=== PATIENT | male | born 1995 | race Caucasian/White ===

== ENCOUNTER 2017-11-19 21:01 | Emergency (ER) | payer BC ==
[2017-11-19 21:13] VITALS: BP 112/60
--- NOTE | 2017-11-19 21:43 | UC ---
Epistaxis Nasal HPI - HPI Summary HPI Summary: Pt collided with another player while playing basketball tonight. Has small cut on bridge of nose with lots of bleeding. Denies dental pain, neck pain, LOC, confusion, or headache. Breathing normally despite marked swelling of bridge of nose. - History of Current Complaint Chief Complaint: UCTrauma Stated Complaint: NOSE INJURY Time Seen by Provider: 11/19/17 21:18 Hx Obtained From: Patient Onset/Duration: Sudden Onset Timing: Constant Severity Initially: Moderate Severity Currently: Mild Pain Intensity: 5 Character: Light Aggravating Factor(s): Nasal Trauma Alleviating Factor(s): Pressure, Ice Associated Signs And Symptoms: Positive: Bruising, Nasal Discharge. Negative: Sinus Pain - Allergies/Home Medications Allergies/Adverse Reactions: Allergies Allergy/AdvReac Type Severity Reaction Status Date / Time amoxicillin [From Augmentin] Allergy Severe Hives Verified 11/19/17 21:14 clavulanic acid Allergy Severe Hives Verified 11/19/17 21:14 [From Augmentin] Home Medications: Home Medications Ibuprofen TAB* [Advil TAB*] 600 mg PO ONCE PRN 11/19/17 [History Confirmed 11/19] Vitamins* 11/19/17 [History] PMH/Surg Hx/FS Hx/Imm Hx Previously Healthy: Yes - Surgical History Surgical History: None - Family History Known Family History: Negative: Blood Disorder - Social History Lives: Alone Alcohol Use: Occasionally Substance Use Type: None Smoking Status (MU): Never Smoked Tobacco - Immunization History Most Recent Tetanus Shot: UNSURE Review of Systems Constitutional: Negative Skin: Other - cut Eyes: Negative ENT: Epistaxis Respiratory: Negative Cardiovascular: Negative Gastrointestinal: Negative Genitourinary: Negative Motor: Negative Neurovascular: Negative Musculoskeletal: Negative Neurological: Negative Psychological: Negative Is Patient Immunocompromised?: No All Other Systems Reviewed And Are Negative: Yes Physical Exam Triage Information Reviewed: Yes Appearance: Well-Appearing, No Pain Distress, Well-Nourished Vital Signs: Initial Vital Signs Temp 99.1 F 11/19/17 21:10 Pulse 90 11/19/17 21:10 Resp 16 11/19/17 21:10 BP 112/60 11/19/17 21:10 Pulse Ox 99 11/19/17 21:10 Vital Signs Reviewed: Yes Eye Exam: Normal Eyes: Positive: Conjunctiva Clear ENT Exam: Other - no facial tenderness in orbits, maxillary sinuses, or forehead /eyebrows ENT: Positive: Hearing grossly normal, Pharyngeal erythema, Other - Marked swelling over bridge of nose with 0.5cm laceration. Nasal septum midline with no septal hematoma, septal deviation, or nasal obstruction. No evidence of epistaxis.. Negative: Nasal congestion, Nasal drainage, Tonsillar swelling Dental Exam: Normal Dental: Negative: Percussion Tenderness @, Dental Fracture @, Bleeding Neck exam: Normal, Other - no bony tenderness Neck: Positive: Supple, Nontender, No Lymphadenopathy Respiratory Exam: Normal Respiratory: Positive: Chest non-tender, Lungs clear, Normal breath sounds, No respiratory distress, No accessory muscle use Cardiovascular Exam: Normal Cardiovascular: Positive: RRR, No Murmur Musculoskeletal Exam: Normal Neurological Exam: Normal Psychological Exam: Normal Skin Exam: Other - 0.5cm lac to bridge of nose, flushed by COMPUTER REPAIRER with 200mL NS, closed with glue and steris Procedures - Laceration/Wound Repair 1 Location: face Description: Linear Length, Depth and Shape: 5mm x 0mm x 0mm, linear Betadine Prep?: No Laceration/Wound Explored: clean Closure: Skin Adhesive, SteriStrips Layer Closure?: No Sterile Dressing Applied?: No Epistaxis Nasal Course/Dx - Course Course Of Treatment: Discussed imaging -- pt has no high-risk features of injury , no other injuries, and nose appears straight despite swelling. He is moving air normally through both nasal passages, no septal hematoma. 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 I instructed him to come back here or go to ED right away if he develops increasing pain, severe swelling, or difficulty breathing. Recommend f/u with ENT. - Differential Dx/Diagnosis Provider Diagnoses: Nasal bone fracture. facial laceration -- glue and steristrips Discharge - Discharge Plan Condition: Stable Disposition: HOME Patient Education Materials: Steristrips (ED), Nasal Fracture (ED) Referrals: No Primary Care Phys,NOPCP [Primary Care Provider] - Juan Maki MD [Medical Doctor] - 4 Days Additional Instructions: As we discussed, there are no worrisome features of your nasal injury. It is very likely that you broke the nasal bone, but your nose appears straight and you are getting air through both nostrils. Please follow up with the ENT specialist to make sure you do not develop problems down the road. You can allow the steristrips to get fully wet and come off after 4 days. Come back at any time if you have increasing redness, swelling, or pain around the cut on your nose.
== END 2017-11-19 21:53 | disposition home or self-care (01) ==
LOC: UCEAST 21:01
DX: S02.2XXA Fracture of nasal bones, initial encounter for closed fracture (principal); S01.21XA Laceration without foreign body of nose, initial encounter; W51.XXXA Accidental striking against or bumped into by another person, initial encounter; Y93.67 Activity, basketball; Y92.310 Basketball court as the place of occurrence of the external cause; Z88.1 Allergy status to other antibiotic agents
CPT/HCPCS: 12011; 99201; G0463

== ENCOUNTER 2018-01-07 07:32 | Emergency (ER) | payer BC ==
[2018-01-07] MEDS ORDERED: Al Hydrox/Mg Hydrox/Simet LIQ* 30 ML UDC PO ONE (08:34)
[2018-01-07] MEDS ORDERED: diPHENhydraMINE LIQ* 12.5 MG/5 ML UDC PO ONE (08:34)
[2018-01-07] MEDS ORDERED: Lidocaine 2% VISCOUS* 15 ML UDC PO ONE (08:34)
[2018-01-07] MEDS ORDERED: HYDROcodone/ACETAMIN 5-325 MG* 1 TAB PO ONE (09:08)
[2018-01-07] MEDS ORDERED: Ketorolac INJ* 60 MG/2 ML VIAL IM ONE (09:08)
--- NOTE | 2018-01-07 09:10 | RAD ---
Indication: Left upper quadrant pain. Real-time sonography of the left kidney was performed. The left kidney measures 13.7 x 7.0 x 5.2 cm with mild left hydronephrosis. The spleen is normal in size. The urinary bladder is partially collapsed. IMPRESSION: Moderate left hydronephrosis.
[2018-01-07 09:54] VITALS: BP 135/69
--- NOTE | 2018-01-07 10:02 | RAD ---
INDICATION: Left flank pain and hematuria. Hydronephrosis on sonography. COMPARISON: Left upper quadrant sonogram same date TECHNIQUE: Noncontrast axial source images were acquired from the level hemidiaphragms to the symphysis pubis as part of CT imaging for renal stone. Lung bases: The lung bases are clear. Liver: The liver is normal in size. Noncontrast imaging shows no evidence of a hepatic mass or ductal dilatation. Gallbladder: There are no calcified gallstones. There is no evidence of wall thickening or pericholecystic fluid.. Spleen: The spleen is normal in size. The noncontrast CT appearance is normal. Pancreas: Noncontrast imaging shows no pancreatic mass or ductal dilitation. Adrenal glands: No masses are identified. Kidneys/Bladder: There is left-sided hydronephrosis and hydroureter traced to a 5 mm calculus at the left UVJ there are no additional calcifications of urinary significance. The noncontrast CT appearance the kidneys is otherwise normal. The bladder is unremarkable. Adenopathy: There is no evidence of intraperitoneal or retroperitoneal adenopathy. Evaluation is limited without oral contrast. Fluid collections: There is a small amount of free fluid in cul-de-sac. Vessels: The aorta and iliac vessels are normal in caliber. There are no significant atherosclerotic changes. The IVC appears normal Pelvic organs: The prostate and seminal vesicles appear normal GI tract: Evaluation of the bowel is limited without oral contrast. The stomach, small bowel, and lower GI tract appear grossly normal. There are no obstructive findings. The appendix is visualized and appears normal. Soft tissues: No soft tissue abnormalities of the extraperitoneal abdomen or pelvis are identified. Osseous structures: There are no acute osseous findings. IMPRESSION: MODERATE LEFT-SIDED HYDRONEPHROSIS SECONDARY TO 5 MM LEFT UVJ CALCULUS. SMALL AMOUNT OF FREE FLUID IN THE CUL-DE-SAC.
--- NOTE | 2018-01-07 11:03 | UC ---
Julienne Hebert Gabriel, scribed for Tarsha Musa DO on 01/07/18 at 0828 . Abdominal Pain Male HPI - HPI Summary HPI Summary: This patient is a 22 year old M [place] [facility] [place] a chief complaint of cramping left sided ABD pain that began two days ago but was worse this morning at 0200. The patient rates the pain 7/10 in severity. Symptoms aggravated by nothing. Symptoms alleviated by nothing, pt took ibuprofen and applied ice with no relief. Patient denies n/v/d, fever, diaphoresis, chills, CP, fatigue, SOB, blood in stool, and [place]. Pt states last BM was yesterday afternoon and it was normal. Pt states he believed it was a pulled muscle from the gym at first, he is still able to work out with the pain. He drank etoh over the weekend. - History of Current Complaint Chief Complaint: UCAbdominalPain Stated Complaint: ABD PAIN Time Seen by Provider: 01/07/18 08:19 Hx Obtained From: Patient Onset/Duration: Worse Since - this morning Timing: Constant Severity Initially: Mild Severity Currently: Severe Pain Intensity: 7 Pain Scale Used: 0-10 Numeric Location: Discrete At: LUQ, Discrete At: LLQ Character: Cramping Aggravating Factor(s): Nothing Alleviating Factor(s): Nothing Associated Signs And Symptoms: Positive: Negative - n/v/d, fever, diaphoresis, chills, CP, SOB, - Allergies/Home Medications Allergies/Adverse Reactions: Allergies Allergy/AdvReac Type Severity Reaction Status Date / Time amoxicillin [From Augmentin] Allergy Severe Hives Verified 01/07/18 07:46 clavulanic acid Allergy Severe Hives Verified 01/07/18 07:46 [From Augmentin] Home Medications: Home Medications Fluticasone NASAL SPRAY 50MCG* [Flonase NASAL SPRAY 50MCG*] 2 spray BOTH NARES DAILY 01/07/18 [History Confirmed 01/07/18] PMH/Surg Hx/FS Hx/Imm Hx - Additional Past Medical History Additional PMH: Pt broke his nose a month ago. Previously Healthy: Yes Other History Of: Negative For: HIV - Surgical History Surgical History: None - Family History Known Family History: Positive: Diabetes - mother Negative: Respiratory Disease, Seizure Disorder, Blood Disorder - Social History Alcohol Use: Occasionally Substance Use Type: None Smoking Status (MU): Never Smoked Tobacco - Immunization History Most Recent Tetanus Shot: UNSURE Review of Systems Constitutional: Negative - FEVER Gastrointestinal: Abdominal Pain All Other Systems Reviewed And Are Negative: Yes Physical Exam - Summary Physical Exam Summary: Appearance: Well-Appearing, No Pain Distress, Well-Nourished Eyes: conjunctiva clear, no discharge ENT: Hearing grossly normal, no muffled/hoarse voice. Hearing grossly normal, normal voice. Neck: Normal, Supple Respiratory/Lung Sounds: Lungs clear, Normal breath sounds, No respiratory distress, No accessory muscle use Cardiovascular: RRR, No murmur Abdomen: LUQ tednerness, Soft, no guarding, not distended Back: left sided CVA tenderness Bowel Sounds: Present Musculoskeletal: Normal Neurological: Alert, muscle tone normal Psychiatric:Normal, age appropriate behavior Skin: Normal, Warm, Dry, Normal color Triage Information Reviewed: Yes Vital Signs: Initial Vital Signs Temp 97.6 F 01/07/18 07:41 Pulse 62 01/07/18 07:41 Resp 16 01/07/18 07:41 BP 123/88 01/07/18 07:41 Pulse Ox 100 01/07/18 07:41 Vital Signs Reviewed: Yes Diagnostics - Radiology ABD/ Pelvis CT Radiology Interpretation Completed By: Radiologist - MODERATE LEFT-SIDED HYDRONEPHROSIS SECONDARY TO 5 MM LEFT UVJ CALCULUS. SMALL AMOUNT OF FREE FLUID IN THE CUL-DE-SAC. Dr Musa has reviewed this report ABD US Radiology Interpretation Completed By: Radiologist - Moderate left hydronephrosis. Dr Musa has reviewed this report. Re-Evaluation - Re-Evaluation First Eval Re-Evaluation Time: 10:50 Change: Improved Comment: The patinet is feeling better and I discussed lab results. Abd Pain Male Course/Dx - Course Course Of Treatment: ABD US reveals, per radiology, Moderate left hydronephrosis. ABD/Pelvis CT reveals, MODERATE LEFT-SIDED HYDRONEPHROSIS SECONDARY TO 5 MM LEFT UVJ CALCULUS. SMALL. AMOUNT OF FREE FLUID IN THE CUL-DE- SAC. In the [facility] course the patient was given [place]. Patient will be discharged with prescription for norco and flomax and follow up from urology. The patient is agreeable with this plan. Medications reviewed. Allergies reviewed. Blood pressure noted - Differential Dx/Clinical Impression Provider Diagnoses: kidney stone,. Hydronephrosis Discharge - Sign-Out/Discharge Documenting (check all that apply): Discharge/Admit/Transfer - Discharge Plan Condition: Stable Disposition: HOME Prescriptions: HYDROcodone/ACETAMIN 5-325 MG* [[place] 5-325 TAB*] 1 tab PO Q6H PRN #14 tab MDD 4 TABS PRN Reason: Pain Tamsulosin CAP* [Flomax CAP*] 0.4 mg PO DAILY #10 cap Patient Education Materials: Tamsulosin (By mouth), Kidney Stones (ED), Hydronephrosis (ED) Referrals: No Primary Care Phys,NOPCP [Primary Care Provider] - Dmitri North MD [Medical Doctor] - (CALL TODAY TO MAKE AN APPOINTMENT FOR THE END OF THIS WEEK) Additional Instructions: You have a kidney stone. It is located near the end of the urinary tract and most likely it will pass on its own. While you are waiting for it to pass we will manage your pain, you should stay very well hydrate, strain your urine, and we will give you a medication to help the stone pass. You should contact urology and make an appointment for the end of the week. If between now and your appointment you develop severe acute pain or any sign of infection such as fever, nausea, vomiting, or pain with urination you should go to the emergency department immediately. The documentation as recorded by the Julienne beltran Gabriel accurately reflects the service I personally performed and the decisions made by , Tarsha Musa DO.
== END 2018-01-07 10:55 | disposition home or self-care (01) ==
LOC: UCEAST 07:32
DX: N13.2 Hydronephrosis with renal and ureteral calculous obstruction (principal); Z88.1 Allergy status to other antibiotic agents; Z88.0 Allergy status to penicillin
CPT/HCPCS: 74176; 76705; 81003; 96372; 99212; G0463; J1885